=== PATIENT | female | born 1965 | race Caucasian/White ===

== ENCOUNTER → 2017-04-17 | Outpatient (CLI) | payer BC ==
[2015-11-03 13:07] VITALS: BP 118/78
[~2017-04-17] MED LIST: ACYC400T PO; DEXT15CA18 PO; ESCITALOPRAM OX10 MG PO; FLUT1DIS IH; PANT40TA5 PO
--- NOTE | 2017-04-17 16:48 | KCIC ---
3 view study of the left knee Clinical indications: Chronic left knee pain. Left knee injury on March 25, 2017. FINDINGS: No acute fracture or dislocation or osteolytic process is seen. No significant arthritic change is seen. No significant knee joint effusion is seen. IMPRESSION: No significant osseous abnormality is evident. 3 view right knee study: Clinical indications: Chronic right knee pain. FINDINGS: No acute fracture or dislocation or osteolytic process is seen. There is minimal degenerative spurring of the lateral tibiofemoral joint compartment without joint space narrowing. No significant right knee joint effusion is seen. IMPRESSION: Minimal degenerative spurring of the lateral tibiofemoral joint compartment. Electronically signed by: Hipolito Rueda MD (04/17/2017 4:45 PM) [facility] [place]
== END | disposition home or self-care (01) ==
LOC: KCIC 15:27
PROVIDERS: ATTEND Physician Assistant Medical
DX: S89.92XA Unspecified injury of left lower leg, initial encounter (principal); S89.91XA Unspecified injury of right lower leg, initial encounter; X58.XXXA Exposure to other specified factors, initial encounter; Y93.89 Activity, other specified; Y92.89 Other specified places as the place of occurrence of the external cause; Y99.8 Other external cause status
CPT/HCPCS: 73562